=== PATIENT | male | born 1995 | race Caucasian/White ===

== ENCOUNTER → 2021-07-22 | Emergency (ER) | payer OTHER ==
[~2021-07-22] VITALS: Ht 175.3 cm; Wt 102.1 kg
== END | disposition home or self-care (01) ==
LOC: ER1 18:02
DX: U07.1 COVID-19 (principal); J12.82 Pneumonia due to coronavirus disease 2019; Z23 Encounter for immunization; F17.210 Nicotine dependence, cigarettes, uncomplicated
CPT/HCPCS: 71045; 87081; 87880; 96374; 99283; J2405; M0243; U0002